=== PATIENT | female | born 1950 | race Caucasian/White ===

== ENCOUNTER 2017-05-11 11:47 | Emergency (ER) | payer MEDICARE, BC ==
[~2017-05-11] VITALS: Ht 167.6 cm; Wt 72.0 kg
[2017-05-11 11:51] VITALS: BP 124/73
[2017-05-11] MEDS ORDERED: LIDOCAINE 1%, 20ML SQ ONE (12:30)
== END 2017-05-11 12:49 | disposition home or self-care (01) ==
LOC: ED 12:13
DX: L72.3 Sebaceous cyst (principal)
CPT/HCPCS: 10060; 99283